=== PATIENT | male | born 1990 | race Caucasian/White ===

== ENCOUNTER 2023-01-23 14:07 | Inpatient (IN) | payer SELFPAY ==
[2023-01-23] VITALS (12 sets, daily range): BP systolic 124–152; BP diastolic 101–113; PULSE 95–144; RESP 12–25; TEMP 36.7–37; O2SAT 96–100; BMI 28.0
--- NOTE | ~2023-01-23 | CT_ITS ---
EXAMINATION: CT abdomen pelvis w con DATE: 01/23/2023 19:10 INDICATION: abdominal pain, vomiting, no BMs TECHNIQUE: Computed tomography (CT) of the abdomen and pelvis was performed with 100 mL Omnipaque-350 intravenous contrast. Automated exposure control and iterative reconstruction technique were employe d. The dose-length product was 547.13 mGy-cm. COMPARISON: None. FINDINGS: Lower thorax: Unremarkable Liver: Diffuse fatty infiltration. Biliary/Gallbladder: Gallbladder is normal. No bile duct dilation. Pancreas: Mild peripancreatic edema and pancreatic fluid, probably secondary to the duodenal process. Spleen: Normal. Adrenals:No mass. Kidneys: No mass, stone, or hydronephrosis. GI tract: Marked wall edema in the second portion of the duodenum. Wall breakdown along the posterior aspect of the second portion of the duodenum. Considerable inflammatory stranding and fluid surround ing the duodenal C-loop. No small or large bowel dilation. Normal appendix. Mesentery/Peritoneum: No mass or free air. Retroperitoneum: No mass. Pelvis: Pelvic organs are within normal limits. Soft Tissues: Soft tissues and body wall unremarkable. Bones: No acute osseous finding. IMPRESSION: CT findings suspicious for a perforated duodenal ulcer. Peripancreatic inflammatory change and fluid likely related to the perforated duodenal ulcer, particularly if pancreatic labs are normal. Reviewed, dictated and finalized at location K. IMPRESSION: CT findings suspicious for a perforated duodenal ulcer. Peripancreatic inflamma tory change and fluid likely related to the perforated duodenal ulcer, particul vera if pancreatic labs are normal.
--- NOTE | ~2023-01-23 | US_ITS ---
Limited Abdominal Sonogram: Real-time sonographic imaging of the right upper quadrant was performed. Clinical History: Pancreatitis Findings: The liver appears mildly echogenic, with no evidence of mass lesion or bile duct dilatatio n. Main portal vein demonstrates normal direction of flow. The gallbladder is well distended, and nyasia ears normal with no evidence of gallstone or wall thickening. The common bile duct measures 4 mm. Th e pancreas is largely obscured by bowel gas shadowing. Impression: Diffuse fatty infiltration of the liver. Reviewed, dictated and finalized at location M. Impression: Diffuse fatty infiltration of the liver.
[2023-01-23 14:56] LABS: Basophils Absolute Auto 0.1 K/mm3 (0.0-0.1); Basophils Percent Auto 0.3 % (0.2-1.2); Eosinophils Percent Auto 0.2 % (0-4.4); Hematocrit 49.3 % (42.0-52.0); Hemoglobin 17.9 g/dL (14.0-18.0); Immature Granulocyte Absolute 0.06 K/mm3 (0.00-0.031); Immature Granulocyte Percent A 0.4 % (0-0.5); Lymphocytes Absolute Auto 1.38 K/mm3 (0.9-3.2); Lymphocytes Percent Auto 9.4 % (18.3-44.2); Mean Corpuscular HGB Conc 36.3 g/dl (32-36); Mean Corpuscular Hemoglobin 33.5 pg (26-34); Mean Corpuscular Volume 92.1 fl (80-100); Mean Platelet Volume 9.6 fl (7.4-10.4); Monocytes Absolute Auto 0.6 K/mm3 (0.1-0.6); Monocytes Percent Auto 4.2 % (2.6-8.5); Neutrophils Absolute Auto 12.5 K/mm3 (1.3-6.7); Neutrophils Percent Auto 85.5 % (45.5-73.1); Platelet Count Result 220 k/mm3 (150-375); Red Blood Count 5.35 M/mm3 (4.6-6.20); Red Cell Distribution Width 13.5 % (11.5-14.5); White Blood Count 14.6 K/mm3 (4.5-10.0)
[2023-01-23 15:42] LABS: Bacteria Urine None Seen /hpf; Hyaline Casts Urine Present /lpf; Need Manual Microscopic Reviewed; Non Pathogenic Casts >20; Squamous Epithelial Cell Urine Many /hpf (Few); WBC Urine 0-5 /hpf; White Blood Cell Casts Urine Present /lpf
[2023-01-23 15:46] LABS: Appearance Urine Clear (Clear); Bilirubin Urine 3+ (Negative); Blood Urine Negative (Negative); Color Urine Orange (Yellow); Glucose Urine UA Negative (Negative); Ketones Urine 4+ mg/dL (Negative); Leukocyte Esterase Ur Negative LEU/UL (Negative); Nitrate Urine Positive (Negative); Protein Urine 3+ mg/dL (Negative); Specific Grav Ur >= 1.030 (1.001-1.035); pH Urine 5.5 (5.0-9.0)
[2023-01-23 15:48] LABS: Add Urine Microscopic? YES
[2023-01-23] MEDS: LACTATED RINGERS 1,000 ML 999 ML IV CONT ×3 (17:48→20:07)
--- NOTE | 2023-01-23 18:12 | ED.ABDPAIN ---
HPI - Abdominal Pain General Chief Complaint: Abdominal Pain Stated Complaint: abdominal cramps Time Seen by Provider: 01/23/23 17:27 History of Present Illness HPI narrative: Patient is a 33-year-old male with a history of GERD presenting with abdominal pain. Patient states that for the last day and a half he has had severe abdominal cramping that waxes and wanes in intensity. States he has had several episodes of emesis. States he has not been able to have a bowel movement since Monday. States this is very abnormal for him as he normally has 2-3 bowel movements a day. Denies prior abdominal surgeries. Denies fevers or chills, chest pain, shortness of breath, dysuria, hematuria, flank pain. Denies leg swelling. Related Data Home Medications Medication Instructions Recorded Confirmed omeprazole 20 mg tablet,delayed 20 mg PO DAILY 10/28/20 06/07/21 release Allergies Allergy/AdvReac Type Severity Reaction Status Date / Time hydroxyzine [From Vistaril] Allergy Intermediate Fever Verified 10/28/20 11:01 Review of Systems Review of Systems: All systems reviewed & are unremarkable except as noted in HPI and below PMFSH Past Medical History Medical History Abscessed tooth BMI 29.0-29.9,adult Diarrhea Edema Essential (primary) hypertension Gastro-esophageal reflux disease without esophagitis Tobacco use disorder, continuous Viral illness Surgical History Surgical History History of surgery on arm (~1997) left arm due to fracture Family History Family History Grandparent Heart disease Hypoglycemia Mother Kidney stones Father Hx of hernia repair Grandparent Diabetes mellitus Heart disease Kidney disease Social History Social History Smoking packs per day: 0.5 Smoking cigarettes per day: 10.0 Smoking status: Current every day smoker Tobacco type: cigarettes Alcohol intake: current Alcohol use details: whiskey 6 to 7 ounces daily Substance use: never Substance use type: does not use Exam Narrative: GENERAL: Well-appearing, well-nourished, and in no acute distress. HEAD: Normocephalic, atraumatic. EYES: PERRLA and EOMI. ENT: Nares clear, no rhinorrhea or epistaxis. Mucous membranes dry NECK: Supple. CHEST: Clear to auscultation. No respiratory distress. HEART: Regular rate and rhythm ABDOMEN: Soft, diffusely tender without guarding or rebound EXTREMITIES: Normal range of motion. No edema. SKIN: Warm, dry, no rash. NEURO: No focal deficits. Alert and oriented x3. PSYCH: Normal mood and affect. Course Vital Signs Vital signs: Vital Signs Temperature 98.0 F 01/23/23 14:34 Pulse Rate 113 H 01/23/23 14:34 Respiratory Rate 18 01/23/23 14:34 Blood Pressure 138/101 H 01/23/23 14:34 Pulse Oximetry 100 01/23/23 14:34 Oxygen Delivery Room Air 01/23/23 14:34 Temperature 98.6 F 01/23/23 17:24 Pulse Rate 113 H 01/23/23 18:45 Respiratory Rate 16 01/23/23 18:45 Blood Pressure 124/113 H 01/23/23 17:46 Pulse Oximetry 98 01/23/23 18:45 Oxygen Delivery Room Air 01/23/23 17:24 MDM - Abdominal Pain MDM Narrative Medical decision making narrative: Patient is a 33-year-old male presenting with abdominal pain and vomiting. Patient tachycardic in the 120s to 130s on arrival. Normotensive. Saturating well on room air. Exam remarkable for the above. Plan for CT abdomen pelvis, blood work. We will start fluids, Pepcid, Tylenol, Toradol. Lipase is 6500. Sodium is 130, there is a mild transaminitis, normal potassium and renal function. Lab Data 01/23/23 14:40 01/23/23 14:40 Labs: Lab Results 01/23/23 01/23/23 01/23/23 Range/Units 14:40 14:44 17:47 WBC 14.
[2023-01-23 18:35] LABS: Alanine Aminotransferase 230 U/L (6-50); Albumin Level 4.5 g/dL (3.5-5.1); Alkaline Phosphatase 121 U/L (38-126); Anion Gap 11 mmol/L (8-16); Aspartate Amino Transferase 207 U/L (17-59); Bilirubin,Total 2.1 mg/dL (0.2-1.3); Blood Urea Nitrogen 8 mg/dL (9-20); Calcium 9.3 mg/dL (8.4-10.2); Carbon Dioxide 27 mmol/L (22-30); Chloride 92 mmol/L (98-107); Estimated CRCL calculation 108 ml/min; Estimated Glomerular Filt Rate > 60; Glucose 133 mg/dL (65-110); Sodium 130 mmol/L (137-145)
[2023-01-23] MEDS: KETOROLAC 15 MG/ML VIAL (*BKC) IV PUSH (18:47)
[2023-01-23 18:48] LABS: Lipase 6503 U/L (23-300)
[2023-01-23] MEDS: FAMOTIDINE 20 MG/2 ML VIAL IV PUSH (18:50)
[2023-01-23 18:51] LABS: Lactic Acid Reflex 1.6 mmol/L (0.7-2.0)
--- NOTE | 2023-01-23 20:17 | PM.IMHP ---
H&P: HPI History of Present Illness Date/Time: 01/23/23 20:17 Chief Complaint: Abdominal pain Narrative: This is a 33-year-old male with past medical history significant for gastroesophageal reflux disease, hypertension, patient smokes 1 pack of cigarettes daily and drinks 1 pt of whiskey daily. Presents to the emergency room with diffuse abdominal pain crampy in nature 10/10 in intensity no nausea, no vomiting, no diarrhea, no hematemesis, no coffee-ground emesis, no melena, no bright red blood per rectum. Patient has been in his usual state of health up until this point he has not had a drink in the last 24 hours. Denies any tremors, any formication, or hallucinations, patient took ibuprofen and Tylenol to help ease the pain. Preliminary workup was significant for a lipase level of 6005 home, AST/ALT/alk phos stage bilirubin were 2.1/230/207/120 CT of abdomen and pelvis was reported as: FINDINGS: Lower thorax: Unremarkable Liver: Diffuse fatty infiltration.? Biliary/Gallbladder: Gallbladder is normal. No bile duct dilation. Pancreas: Mild peripancreatic edema and pancreatic fluid, probably secondary to the duodenal process. Spleen: Normal. Adrenals:No mass. Kidneys: No mass, stone, or hydronephrosis. GI tract: Marked wall edema in the second portion of the duodenum. Wall breakdown along the posterior aspect of the second portion of the duodenum. Considerable inflammatory stranding and fluid surrounding the duodenal C-loop. No small or large bowel dilation. Normal appendix. Mesentery/Peritoneum: No mass or free air. Retroperitoneum: No mass. Pelvis: Pelvic organs are within normal limits. Soft Tissues: Soft tissues and body wall unremarkable. Bones:? No acute osseous finding. IMPRESSION: CT findings suspicious for a perforated duodenal ulcer. Peripancreatic inflammatory change and fluid likely related to the perforated duodenal ulcer, particularly if pancreatic labs are normal. Review of Systems Review of Systems: Abdominal pain Constitutional: Constitutional: Denies chills, Denies fever(s), Denies malaise, Denies night sweats, Denies poor appetite and Denies weakness Eyes: Eyes: Denies change in vision ENT: Denies dysphagia, Denies vertigo, Denies dizziness and Denies odynophagia Cardiovascular: Cardiovascular: Denies chest pain, Denies leg edema, Denies lightheadedness and Denies palpitations Respiratory: Respiratory: Denies cough and Denies excessive phlegm production Gastrointestinal: Gastrointestinal: Reports abdominal pain, Denies melena, Denies bloating, Denies hematochezia, Denies coffee ground emesis, Reports GI cramping, Denies dyspepsia, Reports heartburn, Denies diarrhea, Denies nausea and Denies vomiting Genitourinary: Genitourinary: Reports no additional male genitourinary complaints and Reports as per HPI Musculoskeletal: Musculoskeletal: Denies back pain, Denies joint swelling and Denies muscle weakness Integumentary/Breasts: Skin/Breast: Denies rash Neurologic: Denies focal weakness and Denies Sensory deficit (Neuro) Psychiatric: Psychiatric: Reports no additional psychiatric complaints and Reports as per HPI Endocrine: Endocrine: Denies cold intolerance, Denies flushing, Denies heat intolerance, Denies polyphagia, Denies polydipsia and Denies palpitations Hematologic/Lymphatic: Hematologic/Lymphatic: Reports no additional hematologic/lymphatic complaints and Reports as per HPI Allergic/Immunologic: Allergic/Immunologic: Reports no additional allergic/immunologic complaints and Reports as per HPI PMFSH Past Medical History Medical History Abscessed tooth BMI 29.0-29.9,adult Diarrhea Edema Essential (primary) hypertension Gastro-esophageal reflux disease without esophagitis Tobacco use disorder, continuous Viral illness Surgical History Surgical History History of surgery on a
[2023-01-24] VITALS: BP 147/109; PULSE 124; RESP 18; TEMP 36.7; O2SAT 96
[2023-01-24] MEDS: DEXTROSE 5%/0.45% SOD CHL 1,000 ML 125 ML IV CONT ×3 (00:50→15:47)
[2023-01-24] MEDS: ONDANSETRON INJ 4 MG/2 ML VIAL IV PUSH (03:34)
[2023-01-24] MEDS: HYDROmorphone HCL INJ (*CRX) 1 MG/ML SYR IV PUSH (03:36)
[2023-01-24 06:00] VITALS: BP 132/98; PULSE 94; RESP 18; TEMP 36; O2SAT 96
[2023-01-24 08:12] LABS: Glucose Point of Care 128 mg/dl (65-105)
[2023-01-24] MEDS: PANTOPRAZOLE SODIUM IV 40 MG VIAL IV PUSH ×2 (08:17→20:48)
[2023-01-24] MEDS: THIAMINE HCL 200 MG/2 ML VIAL 100 MG IV PUSH (08:17)
[2023-01-24 08:34] LABS: Basophils Percent Auto 0.5 % (0.2-1.2); Eosinophils Absolute Auto 0.1 K/mm3 (0-0.3); Eosinophils Percent Auto 0.7 % (0-4.4); Hematocrit 46.7 % (42.0-52.0); Immature Granulocyte Absolute 0.03 K/mm3 (0.00-0.031); Immature Granulocyte Percent A 0.4 % (0-0.5); Immature Platelet Fraction Pct 5.1 % (0.9-11.2); Lymphocytes Percent Auto 15.5 % (18.3-44.2); Mean Corpuscular HGB Conc 34.3 g/dl (32-36); Mean Corpuscular Hemoglobin 33.4 pg (26-34); Mean Corpuscular Volume 97.5 fl (80-100); Mean Platelet Volume 9.2 fl (7.4-10.4); Monocytes Absolute Auto 0.5 K/mm3 (0.1-0.6); Monocytes Percent Auto 5.6 % (2.6-8.5); Neutrophils Absolute Auto 6.5 K/mm3 (1.3-6.7); Neutrophils Percent Auto 77.3 % (45.5-73.1); Platelet Count Result 164 k/mm3 (150-375); Red Blood Count 4.79 M/mm3 (4.6-6.20); Red Cell Distribution Width 13.8 % (11.5-14.5); White Blood Count 8.4 K/mm3 (4.5-10.0)
[2023-01-24 08:51] LABS: Alanine Aminotransferase 130 U/L (6-50); Albumin Level 3.4 g/dL (3.5-5.1); Alkaline Phosphatase 71 U/L (38-126); Anion Gap 6 mmol/L (8-16); Aspartate Amino Transferase 107 U/L (17-59); Bilirubin,Total 1.6 mg/dL (0.2-1.3); Blood Urea Nitrogen 5 mg/dL (9-20); Calcium 7.7 mg/dL (8.4-10.2); Carbon Dioxide 30 mmol/L (22-30); Chloride 96 mmol/L (98-107); Estimated CRCL calculation 140 ml/min; Estimated Glomerular Filt Rate > 60; Glucose 109 mg/dL (65-110); Lipase 903 U/L (23-300); Potassium 3.5 mmol/L (3.4-5.0); Sodium 132 mmol/L (137-145)
--- NOTE | 2023-01-24 09:31 | PM.CNGS ---
Assessment and Plan Assessment and plan (1) Acute pancreatitis: Code(s): K85.90 - Acute pancreatitis without necrosis or infection, unspecified Status: Acute Assessment and Plan: CT showed inflammation of the duodenum with possible wall breakdown and peripancreatic inflammation and fluid as well. There is no free intraperitoneal air noted on CT. There is correlation of an elevated lipase of 6,000 on admission, suggesting acute pancreatitis. This could be caused by his alcohol use. No gallstones on US. It is difficult to tell if this is all related to pancreatitis with adjacent inflammation of the duodenum or if he does additionally have a duodenal ulcer. He does not have any diffuse peritoneal signs on exam and is already clinically improving with conservative management. Would recommend to continue medical management of the pancreatitis with IV fluids, bowel rest, and analgesics as needed for pain. Agree with GI consultation and continuing IV Protonix for now. Will hold off on any antibiotics at this point with low suspicion of bowel perforation, but if his WBC count goes up or he starts showing signs of infection, then we would need to add IV antibiotics. We would recommend to continue with nonoperative management at this time as he is responding well, but discussed with the patient that if he begins to have peritoneal signs or is getting worse with conservative measures and concern of perforation, then we may need to consider surgery. (2) Duodenitis: Code(s): K29.80 - Duodenitis without bleeding Status: Acute Assessment and Plan: Duodenitis noted on CT with suggestion of possible duodenal ulcer. No free air on CT. GI consulted. Continue PPI. See plan above. (3) Elevated LFTs: Code(s): R79.89 - Other specified abnormal findings of blood chemistry Status: Acute Assessment and Plan: LFTs trending down this morning. GI consulted. US suggests fatty infiltration of the liver. No gallstones or bile duct dilatation noted on imaging. Could be related to the inflammation or liver disease. (4) Alcohol dependence: Code(s): F10.20 - Alcohol dependence, uncomplicated Status: Acute Assessment and Plan: Encouraged cessation and patient agrees he plans to stop drinking after discharge. Likely cause of his pancreatitis. (5) Tobacco dependence: Code(s): F17.200 - Nicotine dependence, unspecified, uncomplicated Status: Acute Assessment and Plan: Encouraged cessation. (6) Essential (primary) hypertension: Code(s): I10 - Essential (primary) hypertension Status: Acute Assessment and Plan: Has been noncompliant with his antihypertensive medication. Management per Hospitalist. (7) Gastro-esophageal reflux disease without esophagitis: Code(s): K21.9 - Gastro-esophageal reflux disease without esophagitis Status: Acute Plan I have discussed the patient's case and plan of care with Dr. Mckenzie. History of Present Illness Consult details Consult date: 01/24/23 Reason for consult: other (Possible perforated duodenal ulcer, Pancreatitis) Requesting physician: Nahomi Bowers MD Narrative: This is a 33-year-old man who presented to the ER yesterday with complaints of abdominal pain and vomiting. He has a history of hypertension and GERD, but reportedly has not taken his medications in the past 6 months due to noncompliance of forgetting his medication. He reports a sudden onset of generalized abdominal pain when waking up in the morning 2 days ago. The pain is sharp and severe. It goes across his entire abdomen. The pain was constant with no alleviating factors. He tried taking Ibuprofen without any relief. He developed nausea with multiple episodes of nonbloody nonbilious vomiting. Due to his persistent pain, he presented to the ER for evaluation. In the ER, he was tachycardic with a heart rate from 120-140's. He was afebrile. Labs showed
[2023-01-24 09:35] VITALS: O2SAT 96
[2023-01-24] MEDS: HYDROmorphone HCL INJ (*CRX) 1 MG/ML SYR 0.5 MG IV PUSH ×3 (11:05→20:46)
[2023-01-24 11:54] LABS: Glucose Point of Care 128 mg/dl (65-105)
--- NOTE | 2023-01-24 12:22 | P.PNIM_ITS ---
Progress Note: A&P Assessment and Plan (1) Acute pancreatitis: Code(s): K85.90 - Acute pancreatitis without necrosis or infection, unspecified Status: Acute Assessment and Plan: patient presented with severe diffuse abdominal pain /cramping * CT of the abdomen/pelvis showed peripancreatic inflammatory changes and fluid, possibly related to perforated duodenal ulcer, however appears clinically consistent with pancreatitis * lipase elevated at 6300 * continue with NPO diet * right upper quadrant ultrasound with no evidence of gallstones or wall thickening, normal common bile duct, pancreas obscured by bowel gas shadow * patient does endorse heavy alcohol use, 1 pint of liquor per day which is the likely etiology for acute pancreatitis * continue with IV fluid rehydration * appreciate gastroenterology and general surgery consult * lipase has improved to 900 today. Continue to trend * analgesics and antiemetics available as needed (2) Duodenitis: Code(s): K29.80 - Duodenitis without bleeding Status: Acute Assessment and Plan: as and above, patient presented with severe abdominal pain * CT findings revealed marked well edema and 2nd portion of duodenum with wall breakdown along the posterior aspect 2nd portion of duodenum and considerable inflammatory stranding and fluid, concerning for perforated duodenal ulcer * appreciate general surgery recommendations * per General surgery, no diffuse peritoneal signs and no indication for surgic al intervention at this time * continue with conservative management * continue IV Protonix * await Gastroenterology recommendations (3) Elevated LFTs: Code(s): R79.89 - Other specified abnormal findings of blood chemistry Status: Acute Assessment and Plan: LFTs elevated on presentation was total bilirubin 2.1, AST 207, ALT 230 * LFTs decreased by half today * may be related to alcohol use versus fatty liver which was seen on ultrasound * will evaluate hepatitis panel for full evaluation * trend LFTs (4) Gastro-esophageal reflux disease without esophagitis: Code(s): K21.9 - Gastro-esophageal reflux disease without esophagitis Status: Acute Assessment and Plan: continue with Protonix (5) Alcohol dependence: Code(s): F10.20 - Alcohol dependence, uncomplicated Status: Acute Assessment and Plan: patient drinks 1 pint of whiskey per day * patient denies any history of alcohol withdrawal symptoms * continue with CIWA protocol. CIWA scores ranging 0-2 today * Ativan as needed for CIWA >8 * consider addition of Librium taper if patient develops more severe symptoms * continue thiamine and folic acid * consult to care coordination to provide alcohol cessation resources (6) Tobacco dependence: Code(s): F17.200 - Nicotine dependence, unspecified, uncomplicated Status: Acute Assessment and Plan: patient smokes 1 pack per day * patient instructed that he cannot vape in the facility * declined nicotine patch Subjective Date/time seen: 01/24/23 12:22 Interval history: date of service: 3142 patient is a 33-year-old male with a history of hypertension, tobacco use, daily alcohol use, and GERD who is seen in follow-up for pancreatitis and possible duodenal ulcer perforation. the patient reports that he is feeling improved today. He does endorse abdominal cramping they states is improved from presentation, currently rates at about 2.5-3/10. His pain is worse with deep
--- NOTE | 2023-01-24 12:22 | PM.IMPN ---
Progress Note: A&P Assessment and Plan (1) Acute pancreatitis: Code(s): K85.90 - Acute pancreatitis without necrosis or infection, unspecified Status: Acute Assessment and Plan: patient presented with severe diffuse abdominal pain /cramping CT of the abdomen/pelvis showed peripancreatic inflammatory changes and fluid, possibly related to perforated duodenal ulcer, however appears clinically consistent with pancreatitis lipase elevated at 6300 continue with NPO diet right upper quadrant ultrasound with no evidence of gallstones or wall thickening, normal common bile duct, pancreas obscured by bowel gas shadow patient does endorse heavy alcohol use, 1 pint of liquor per day which is the likely etiology for acute pancreatitis continue with IV fluid rehydration appreciate gastroenterology and general surgery consult lipase has improved to 900 today. Continue to trend analgesics and antiemetics available as needed (2) Duodenitis: Code(s): K29.80 - Duodenitis without bleeding Status: Acute Assessment and Plan: as and above, patient presented with severe abdominal pain CT findings revealed marked well edema and 2nd portion of duodenum with wall breakdown along the posterior aspect 2nd portion of duodenum and considerable inflammatory stranding and fluid, concerning for perforated duodenal ulcer appreciate general surgery recommendations per General surgery, no diffuse peritoneal signs and no indication for surgical intervention at this time continue with conservative management continue IV Protonix await Gastroenterology recommendations (3) Elevated LFTs: Code(s): R79.89 - Other specified abnormal findings of blood chemistry Status: Acute Assessment and Plan: LFTs elevated on presentation was total bilirubin 2.1, AST 207, ALT 230 LFTs decreased by half today may be related to alcohol use versus fatty liver which was seen on ultrasound will evaluate hepatitis panel for full evaluation trend LFTs (4) Gastro-esophageal reflux disease without esophagitis: Code(s): K21.9 - Gastro-esophageal reflux disease without esophagitis Status: Acute Assessment and Plan: continue with Protonix (5) Alcohol dependence: Code(s): F10.20 - Alcohol dependence, uncomplicated Status: Acute Assessment and Plan: patient drinks 1 pint of whiskey per day patient denies any history of alcohol withdrawal symptoms continue with CIWA protocol. CIWA scores ranging 0-2 today Ativan as needed for CIWA >8 consider addition of Librium taper if patient develops more severe symptoms continue thiamine and folic acid consult to care coordination to provide alcohol cessation resources (6) Tobacco dependence: Code(s): F17.200 - Nicotine dependence, unspecified, uncomplicated Status: Acute Assessment and Plan: patient smokes 1 pack per day patient instructed that he cannot vape in the facility declined nicotine patch Subjective Date/time seen: 01/24/23 12:22 Interval history: date of service: 3142 patient is a 33-year-old male with a history of hypertension, tobacco use, daily alcohol use, and GERD who is seen in follow-up for pancreatitis and possible duodenal ulcer perforation. the patient reports that he is feeling improved today. He does endorse abdominal cramping they states is improved from presentation, currently rates at about 2.5-3/10. His pain is worse with deep breath or with belching. He does feel bloated and gassy. He had nausea yesterday but today denies any episodes of nausea or vomiting. he has had improvement with analgesics. Reports passing flatus. Last bowel movement was Monday evening. He denies any blood in his stools. Denies hematemesis. He denies any urinary symptoms. Denies any alcohol withdrawal symptoms including agitation, anxiety, tremors, restles
[2023-01-24 14:00] VITALS: BP 127/87; PULSE 105; RESP 20; TEMP 37; O2SAT 96
--- NOTE | 2023-01-24 17:02 | WPDGICN ---
Assessment and Plan Assessment and plan (1) Acute pancreatitis: Code(s): K85.90 - Acute pancreatitis without necrosis or infection, unspecified Status: Acute Assessment and Plan: this is probably related to alcohol abuse currently npo, evaluated by surgery, abdominal exam without peritonitis sign and CT scan findings reviewed with radiologist monitor closely, if pain better tomorrow then can start liquid diet (2) Alcohol dependence: Code(s): F10.20 - Alcohol dependence, uncomplicated Status: Acute Assessment and Plan: thiamine, mvi monitor for withdrawal (3) Elevated LFTs: Code(s): R79.89 - Other specified abnormal findings of blood chemistry Status: Acute Assessment and Plan: probably from alcohol and acute pancreatitis (4) Fatty liver due to alcoholism: Code(s): K70.0 - Alcoholic fatty liver Status: Acute (5) Duodenitis: Code(s): K29.80 - Duodenitis without bleeding Status: Acute Assessment and Plan: at some point will need egd (never had one and has been using ppi otc without seeing a doctor) iv protonix (6) Abdominal pain: Code(s): R10.9 - Unspecified abdominal pain Status: Acute (7) Gastro-esophageal reflux disease without esophagitis: Code(s): K21.9 - Gastro-esophageal reflux disease without esophagitis Status: Acute GI Consult Note Consult date/time: 01/24/23 17:02 Reason for consult: pancreatitis, duodenitis, alcohol abuse HPI: Abraham Feliciano is a 33 year old male who is an alcoholic about 1 pint per day for 2 years, gerd using omeprazole OTC but never had EGD. He came to ER?because new onset of severe diffuse abdominal pain and vomiting, pain was sharp across his entire abdomen. He tried taking Ibuprofen without any relief. In the ER, he was tachycardic with a heart rate from 120-140's. Labs showed a WBC count 14,600, lactic acid 1.6, total bilirubin 2.1, AST 207, ALT 230, alk phos normal, lipase 6503. CT scan abdomen/pelvis showed wall edema of the duodenum with possible wall breakdown along the posterior aspect of the second portion of the duodenum with surrounding inflammatory stranding and fluid around the duodenal C-loop, additionally with mild peripancreatic edema and pancreatic fluid. Suggested possible perforated duodenal ulcer but after reviewed with surgery team no obvious finding of perforation. Pain is better. Review of Systems Review of Systems: All systems reviewed & are unremarkable except as noted in HPI and below Constitutional: Constitutional: Reports no additional constitutional complaints, Denies chills, Denies fatigue and Denies fever(s) Eyes: Eyes: Reports no additional eye complaints ENT: Reports system reviewed and no additional complaints, except as documented and Denies dizziness Cardiovascular: Cardiovascular: Reports no additional cardiovascular complaints, Denies chest pain and Denies leg edema Respiratory: Respiratory: Reports no additional respiratory complaints, Denies cough and Denies dyspnea Gastrointestinal: Gastrointestinal: Reports as per HPI, Reports no additional gastrointestinal complaints, Reports abdominal pain, Reports bloating, Denies coffee ground emesis, Denies constipation, Denies diarrhea, Reports nausea, Reports vomiting and Denies hematemesis Genitourinary: Genitourinary: Reports no additional male genitourinary complaints and Denies dysuria Musculoskeletal: Musculoskeletal: Reports no additional musculoskeletal complaints, Denies abnormal gait and Denies joint swelling Integumentary/Breasts: Skin/Breast: Reports system reviewed and no additional complaints, except as docu and Denies jaundice Neurologic: Reports system reviewed and no additional complaints, except as documented, Denies headache(s), Denies focal weakness, Denies numbness and Denies tingling PMFSH Past Medical History Medical History (Updated 01/24/23 @ 15:54 by Kishor Mistry
[2023-01-24 19:13] LABS: Glucose Point of Care 116 mg/dl (65-105)
[2023-01-24 21:19] VITALS: BP 126/83; PULSE 109; RESP 18; TEMP 36.9; O2SAT 95
[2023-01-25] MEDS: DEXTROSE 5%/0.45% SOD CHL 1,000 ML 125 ML IV CONT ×2 (00:17→08:12)
[2023-01-25] MEDS: HYDROmorphone HCL INJ (*CRX) 1 MG/ML SYR 0.5 MG IV PUSH ×6 (00:32→22:40)
[2023-01-25 01:23] LABS: Glucose Point of Care 113 mg/dl (65-105)
[2023-01-25 06:00] VITALS: BP 128/92; PULSE 94; RESP 18; TEMP 37.1; O2SAT 94
[2023-01-25 06:44] LABS: Basophils Percent Auto 0.5 % (0.2-1.2); Eosinophils Absolute Auto 0.2 K/mm3 (0-0.3); Eosinophils Percent Auto 2.5 % (0-4.4); Hematocrit 41.8 % (42.0-52.0); Immature Granulocyte Absolute 0.04 K/mm3 (0.00-0.031); Immature Granulocyte Percent A 0.5 % (0-0.5); Immature Platelet Fraction Pct 5.6 % (0.9-11.2); Lymphocytes Absolute Auto 1.22 K/mm3 (0.9-3.2); Lymphocytes Percent Auto 15.7 % (18.3-44.2); Mean Corpuscular HGB Conc 33.5 g/dl (32-36); Mean Corpuscular Volume 98.6 fl (80-100); Mean Platelet Volume 9.5 fl (7.4-10.4); Monocytes Absolute Auto 0.7 K/mm3 (0.1-0.6); Monocytes Percent Auto 9.4 % (2.6-8.5); Neutrophils Absolute Auto 5.5 K/mm3 (1.3-6.7); Neutrophils Percent Auto 71.4 % (45.5-73.1); Platelet Count Result 141 k/mm3 (150-375); Red Blood Count 4.24 M/mm3 (4.6-6.20); Red Cell Distribution Width 13.9 % (11.5-14.5); White Blood Count 7.8 K/mm3 (4.5-10.0)
[2023-01-25 07:04] LABS: Alanine Aminotransferase 94 U/L (6-50); Albumin Level 3.3 g/dL (3.5-5.1); Alkaline Phosphatase 73 U/L (38-126); Anion Gap 3 mmol/L (8-16); Aspartate Amino Transferase 73 U/L (17-59); Blood Urea Nitrogen 4 mg/dL (9-20); Carbon Dioxide 33 mmol/L (22-30); Chloride 91 mmol/L (98-107); Estimated CRCL calculation 108 ml/min; Estimated Glomerular Filt Rate > 60; Glucose 125 mg/dL (65-110); Potassium 3.9 mmol/L (3.4-5.0); Sodium 127 mmol/L (137-145)
[2023-01-25 08:03] LABS: Glucose Point of Care 138 mg/dl (65-105)
[2023-01-25] MEDS: PANTOPRAZOLE SODIUM IV 40 MG VIAL IV PUSH ×2 (08:13→19:58)
[2023-01-25] MEDS: THIAMINE HCL 200 MG/2 ML VIAL 100 MG IV PUSH (08:13)
[2023-01-25] MEDS: FOLIC ACID 1 MG TABLET PO (08:14)
[2023-01-25 08:42] LABS: Lipase 375 U/L (23-300)
[2023-01-25] MEDS: SODIUM CHLORIDE 0.9% IV 1,000 ML 100 ML IV CONT ×2 (08:57→17:34)
[2023-01-25] MEDS: ONDANSETRON INJ 4 MG/2 ML VIAL IV PUSH (09:34)
[2023-01-25 12:18] LABS: Glucose Point of Care 110 mg/dl (65-105)
[2023-01-25 12:29] LABS: Sodium 127 mmol/L (137-145)
--- NOTE | 2023-01-25 13:21 | PM.PNGS ---
Progress Note: A&P Assessment and Plan (1) Acute pancreatitis: Code(s): K85.90 - Acute pancreatitis without necrosis or infection, unspecified Status: Acute Assessment and Plan: Clinically improving with current treatment, lipase trending down to 375 today. Abdominal pain much improved, abd exam benign. We feel this is all related to the acute pancreatitis. No evidence of bowel perforation or peritoneal signs on exam. Continue with medical management of the pancreatitis, GI following, will start clear liquids and okay to advance diet as tolerated. No indication for any surgical intervention. We will sign off at this point. Call with any surgical questions or concerns. No follow-up needed. (2) Duodenitis: Code(s): K29.80 - Duodenitis without bleeding Status: Acute Assessment and Plan: Management per GI. Continue PPI, plan for possible endoscopy evaluation eventually. (3) Elevated LFTs: Code(s): R79.89 - Other specified abnormal findings of blood chemistry Status: Acute (4) Alcohol dependence: Code(s): F10.20 - Alcohol dependence, uncomplicated Status: Acute Assessment and Plan: Recommended cessation and patient agreeable. Plan I have discussed the patient's case and plan of care with Dr. Mckenzie. Subjective Subjective Date/Time Seen: 01/25/23 13:21 Patient reports: no new complaints, feels better, pain is less, flatus and afebrile Interval history: Patient feeling much better today. Reports abdominal pain has significantly improved. He now only reports very mild right lower quadrant abdominal pain. He denies any nausea or vomiting. No other complaints at this time. He is thirsty and eager to try liquids. Review of Systems Review of Systems: All systems reviewed & are unremarkable except as noted in HPI and below Exam Const: General: comfortable and no acute distress Orientation/consciousness: patient oriented x3 GI: Inspection: non-distended GI Palp: Yes Soft to palpation, Yes Tenderness to palpation present (GI) (Very mild TTP across upper abdomen), No Guarding due to palpation present (GI), No Rebound tenderness present and Yes Other GI palpation findings present (No peritoneal signs) Percussion: Yes normal to percussion Auscultation: normal bowel sounds Objective Data Vital Signs Vital Signs: Vital Signs - 24 hr 01/24/23 14:00 01/24/23 21:19 01/25/23 06:00 Temperature 98.6 F 98.5 F 98.8 F Pulse Rate 105 H 109 H 94 Respiratory Rate 20 18 18 Blood Pressure 127/87 126/83 128/92 H Pulse Oximetry 96 95 94 Intake/Output Intake/Output: Intake & Output 01/22/23 01/23/23 01/24/23 01/25/23 23:59 23:59 23:59 23:59 Intake Total 3200 3000 2550 Output Total 350 Balance 3200 2650 2550 Meds/Results Medications: Active Medications Generic Name Dose Route Start Last Admin Trade Name Freq PRN Reason Stop Dose Admin Folic Acid 1 mg 01/25/23 09:00 01/25/23 08:14 Folic Acid 1 Mg Tablet PO 1 mg DAILY NELSON Administration Hydromorphone HCl 1 mg 01/24/23 03:14 01/24/23 03:36 Hydromorphone Hcl Inj (*Crx) 1 Mg/Ml Syr IV PUSH 1 mg Q3H PRN Administration Pain Rated 7-10 Hydromorphone HCl 0.5 mg 01/24/23 09:54 01/25/23 12:28 Hydromorphone Hcl Inj (*Crx) 1 Mg/Ml Syr IV PUSH 0.5 mg Q3H PRN Administration Pain Rated 4-6 Sodium Chloride 1,000 mls @ 100 mls/hr 01/25/23 08:35 01/25/23 08:57 Normal Saline Iv IV CONT 100 mls/hr .Q10H NELSON Administration Lorazepam 0.5 mg 01/24/23 08:05 Lorazepam Inj (*Crx) 2 Mg/Ml Vial IV PUSH Q6H PRN CIWA >8 Ondansetron HCl 4 mg 01/24/23 00:19 01/25/23 09:34 Ondansetron Inj 4 Mg/2 Ml Vial IV PUSH 4 mg Q6H PRN Administration Nausea And Vomiting Pantoprazole Sodium 40 mg 01/24/23 09:00 01/25/23 08:13 Pantoprazole Sodium Iv 40 Mg Vial IV PUSH 40 mg Q12HR NELSON Administration Thiamine HCl 100 mg 01/24/23
[2023-01-25 14:00] VITALS: BP 128/91; PULSE 96; RESP 18; TEMP 36.4; O2SAT 97
--- NOTE | 2023-01-25 15:52 | P.PNIM_ITS ---
Progress Note: A&P Assessment and Plan (1) Acute pancreatitis: Code(s): K85.90 - Acute pancreatitis without necrosis or infection, unspecified Status: Acute Assessment and Plan: patient presented with severe diffuse abdominal pain /cramping * CT of the abdomen/pelvis showed peripancreatic inflammatory changes and fluid, possibly related to perforated duodenal ulcer, however appears clinically consistent with pancreatitis * lipase elevated at 6300 * right upper quadrant ultrasound with no evidence of gallstones or wall thickening, normal common bile duct, pancreas obscured by bowel gas shadow * patient does endorse heavy alcohol use, 1 pint of liquor per day which is the likely etiology for acute pancreatitis * continue with IV fluid rehydration * advanced to clear liquid diet. Continue to advance as tolerated * appreciate gastroenterology and general surgery consult * lipase has improved to 375 today. Continue to trend * analgesics and antiemetics available as needed (2) Duodenitis: Code(s): K29.80 - Duodenitis without bleeding Status: Acute Assessment and Plan: as above, patient presented with severe abdominal pain * CT findings revealed marked well edema and 2nd portion of duodenum with wall breakdown along the posterior aspect 2nd portion of duodenum and considerable inflammatory stranding and fluid, concerning for perforated duodenal ulcer * appreciate general surgery recommendations * per General surgery, no diffuse peritoneal signs and no indication for surgical intervention at this time * per GI, patient will need EGD as an outpatient * continue with conservative management * continue IV Protonix (3) Elevated LFTs: Code(s): R79.89 - Other specified abnormal findings of blood chemistry Status: Acute Assessment and Plan: LFTs elevated on presentation with total bilirubin 2.1, AST 207, ALT 230 * LFTs with continued improvement today * may be related to alcohol use versus fatty liver which was seen on ultrasound * will evaluate hepatitis panel for full evaluation * trend LFTs (4) Gastro-esophageal reflux disease without esophagitis: Code(s): K21.9 - Gastro-esophageal reflux disease without esophagitis Status: Acute Assessment and Plan: continue with Protonix (5) Alcohol dependence: Code(s): F10.20 - Alcohol dependence, uncomplicated Status: Acute Assessment and Plan: patient drinks 1 pint of whiskey per day * patient denies any history of alcohol withdrawal symptoms * continue with CIWA protocol. CIWA scores ranging 0-1 today * Ativan as needed for CIWA >8 * consider addition of Librium taper if patient develops more severe symptoms * continue thiamine and folic acid * consult to care coordination to provide alcohol cessation resources (6) Tobacco dependence: Code(s): F17.200 - Nicotine dependence, unspecified, uncomplicated Status: Acute Assessment and Plan: patient smokes 1 pack per day * patient instructed that he cannot vape in the facility * declined nicotine patch (7) Hyponatremia: Code(s): E87.1 - Hypo-osmolality and hyponatremia Status: Acute Assessment and Plan: sodium low at 127 today * likely due to hypotonic fluids. Patient was on D5 1/2NS * transitioned to normal saline at 100 mL/hour * trend sodium. Repeat this afternoon to ensure improvement at appropriate rate Subjective Date/time seen: 01/25/23 15:52 Interv
--- NOTE | 2023-01-25 15:52 | PM.IMPN ---
Progress Note: A&P Assessment and Plan (1) Acute pancreatitis: Code(s): K85.90 - Acute pancreatitis without necrosis or infection, unspecified Status: Acute Assessment and Plan: patient presented with severe diffuse abdominal pain /cramping CT of the abdomen/pelvis showed peripancreatic inflammatory changes and fluid, possibly related to perforated duodenal ulcer, however appears clinically consistent with pancreatitis lipase elevated at 6300 right upper quadrant ultrasound with no evidence of gallstones or wall thickening, normal common bile duct, pancreas obscured by bowel gas shadow patient does endorse heavy alcohol use, 1 pint of liquor per day which is the likely etiology for acute pancreatitis continue with IV fluid rehydration advanced to clear liquid diet. Continue to advance as tolerated appreciate gastroenterology and general surgery consult lipase has improved to 375 today. Continue to trend analgesics and antiemetics available as needed (2) Duodenitis: Code(s): K29.80 - Duodenitis without bleeding Status: Acute Assessment and Plan: as above, patient presented with severe abdominal pain CT findings revealed marked well edema and 2nd portion of duodenum with wall breakdown along the posterior aspect 2nd portion of duodenum and considerable inflammatory stranding and fluid, concerning for perforated duodenal ulcer appreciate general surgery recommendations per General surgery, no diffuse peritoneal signs and no indication for surgical intervention at this time per GI, patient will need EGD as an outpatient continue with conservative management continue IV Protonix (3) Elevated LFTs: Code(s): R79.89 - Other specified abnormal findings of blood chemistry Status: Acute Assessment and Plan: LFTs elevated on presentation with total bilirubin 2.1, AST 207, ALT 230 LFTs with continued improvement today may be related to alcohol use versus fatty liver which was seen on ultrasound will evaluate hepatitis panel for full evaluation trend LFTs (4) Gastro-esophageal reflux disease without esophagitis: Code(s): K21.9 - Gastro-esophageal reflux disease without esophagitis Status: Acute Assessment and Plan: continue with Protonix (5) Alcohol dependence: Code(s): F10.20 - Alcohol dependence, uncomplicated Status: Acute Assessment and Plan: patient drinks 1 pint of whiskey per day patient denies any history of alcohol withdrawal symptoms continue with CIWA protocol. CIWA scores ranging 0-1 today Ativan as needed for CIWA >8 consider addition of Librium taper if patient develops more severe symptoms continue thiamine and folic acid consult to care coordination to provide alcohol cessation resources (6) Tobacco dependence: Code(s): F17.200 - Nicotine dependence, unspecified, uncomplicated Status: Acute Assessment and Plan: patient smokes 1 pack per day patient instructed that he cannot vape in the facility declined nicotine patch (7) Hyponatremia: Code(s): E87.1 - Hypo-osmolality and hyponatremia Status: Acute Assessment and Plan: sodium low at 127 today likely due to hypotonic fluids. Patient was on D5 1/2NS transitioned to normal saline at 100 mL/hour trend sodium. Repeat this afternoon to ensure improvement at appropriate rate Subjective Date/time seen: 01/25/23 15:52 Interval history: date of service: 01/25/2023 patient is a 33-year-old male with a history of hypertension, tobacco use, daily alcohol use, and GERD who is seen in follow-up for pancreatitis and possible duodenal ulcer perforation. he feels improved today. He does endorse abdominal soreness and tenderness that he states is less severe, currently rates 2.5/10. This morning he took some pain medication and felt nauseous after this. No other
--- NOTE | 2023-01-25 17:15 | WPDGIPROGNO ---
Progress Note: A&P Assessment and Plan (1) Acute pancreatitis: Code(s): K85.90 - Acute pancreatitis without necrosis or infection, unspecified Status: Acute Assessment and Plan: this is improving, ok to advance diet surgery signed off ct scan consistent with pancreatitis and duodenitis probably will benefit with EGD but as outpatient (2) Fatty liver due to alcoholism: Code(s): K70.0 - Alcoholic fatty liver Status: Acute Assessment and Plan: he needs to quit drinking, he already had elevated liver enzymes thiamine, supportive care (3) Elevated LFTs: Code(s): R79.89 - Other specified abnormal findings of blood chemistry Status: Acute (4) Duodenitis: Code(s): K29.80 - Duodenitis without bleeding Status: Acute Assessment and Plan: ppi daily egd as outpatient probably from alcohol and pancreatitis (5) Abdominal pain: Code(s): R10.9 - Unspecified abdominal pain Status: Acute Assessment and Plan: much better (6) Hyponatremia: Code(s): E87.1 - Hypo-osmolality and hyponatremia Status: Acute Assessment and Plan: monitor Subjective Date/time seen: 01/25/23 17:15 Interval history: doing much better with less pain and no more nausea, tolerated liquid diet Review of Systems Review of Systems: All systems reviewed & are unremarkable except as noted in HPI and below Exam Const: General: comfortable and no acute distress Orientation/consciousness: patient oriented x3 HENMT: Face/Nose/Sinus: Normal nares present Eyes: General: appearance normal, both eyes and all related structures Neck: Neck: supple Resp: Effort & Inspection: normal respiratory effort Cardio: Rate: regular rate GI: Inspection: non-distended GI Palp: Yes Soft to palpation, Yes Tenderness to palpation present (GI) (Very mild TTP across upper abdomen), No Guarding due to palpation present (GI), No Rebound tenderness present and Yes Other GI palpation findings present (No peritoneal signs) Percussion: Yes normal to percussion Auscultation: normal bowel sounds Skin: General skin exam: normal color Neuro: Speech: normal speech Motor exam (neuro): 5/5 motor strength present throughout Extrem: General: normal to inspection Psych: Mental Status: mental status grossly normal Objective Data Vital Signs Vital Signs: Vital Signs - 24 hr 01/24/23 21:19 01/25/23 06:00 Temperature 98.5 F 98.8 F Pulse Rate 109 H 94 Respiratory Rate 18 18 Blood Pressure 126/83 128/92 H Pulse Oximetry 95 94 Intake/Output Intake/Output: Intake & Output 01/22/23 01/23/23 01/24/23 01/25/23 23:59 23:59 23:59 23:59 Intake Total 3200 3000 2550 Output Total 350 500 Balance 3200 2650 2050 Meds/Results Medications: Active Medications Generic Name Dose Route Start Last Admin Trade Name Freq PRN Reason Stop Dose Admin Folic Acid 1 mg 01/25/23 09:00 01/25/23 08:14 Folic Acid 1 Mg Tablet PO 1 mg DAILY NELSON Administration Hydromorphone HCl 1 mg 01/24/23 03:14 01/24/23 03:36 Hydromorphone Hcl Inj (*Crx) 1 Mg/Ml Syr IV PUSH 1 mg Q3H PRN Administration Pain Rated 7-10 Hydromorphone HCl 0.5 mg 01/24/23 09:54 01/25/23 12:28 Hydromorphone Hcl Inj (*Crx) 1 Mg/Ml Syr IV PUSH 0.5 mg Q3H PRN Administration Pain Rated 4-6 Sodium Chloride 1,000 mls @ 100 mls/hr 01/25/23 08:35 01/25/23 08:57 Normal Saline Iv IV CONT 100 mls/hr .Q10H NELSON Administration Lorazepam 0.5 mg 01/24/23 08:05 Lorazepam Inj (*Crx) 2 Mg/Ml Vial IV PUSH Q6H PRN CIWA >8 Ondansetron HCl 4 mg 01/24/23 00:19 01/25/23 09:34 Ondansetron Inj 4 Mg/2 Ml Vial IV PUSH 4 mg Q6H PRN Administration Nausea And Vomiting Pantoprazole Sodium 40 mg 01/24/23 09:00 01/25/23 08:13 Pantoprazole Sodium Iv 40 Mg Vial IV PUSH 40 mg Q12HR NELSON Administration Thiamine HCl 100 mg 01/24/23 09:00 01/25/23 08:
[2023-01-25 17:54] LABS: Sodium 130 mmol/L (137-145); Triglycerides 373 mg/dL (<150)
[2023-01-25 19:15] LABS: Hepatitis B Surface Antigen Negative (Negative)
[2023-01-25 19:20] LABS: HAV RESULT Negative (Negative); Hepatitis B Core IgM Result Negative (Negative)
[2023-01-25 19:32] LABS: Hepatitis C Virus Antibody Negative (Negative)
[2023-01-25 19:52] VITALS: BP 150/99; PULSE 107; RESP 16; TEMP 37; O2SAT 99
[2023-01-26] MEDS: HYDROmorphone HCL INJ (*CRX) 1 MG/ML SYR 0.5 MG IV PUSH (02:08)
[2023-01-26] MEDS: SODIUM CHLORIDE 0.9% IV 1,000 ML 100 ML IV CONT (03:18)
[2023-01-26 06:00] VITALS: BP 126/80; PULSE 95; RESP 18; TEMP 36.2; O2SAT 96
[2023-01-26 07:13] LABS: Hematocrit 38.1 % (42.0-52.0); Hemoglobin 12.6 g/dL (14.0-18.0); Mean Corpuscular HGB Conc 33.1 g/dl (32-36); Mean Corpuscular Hemoglobin 33.1 pg (26-34); Mean Platelet Volume 9.8 fl (7.4-10.4); Platelet Count Result 168 k/mm3 (150-375); Red Blood Count 3.81 M/mm3 (4.6-6.20); Red Cell Distribution Width 13.8 % (11.5-14.5)
[2023-01-26 07:24] LABS: Alanine Aminotransferase 98 U/L (6-50); Albumin Level 3.1 g/dL (3.5-5.1); Alkaline Phosphatase 80 U/L (38-126); Anion Gap 6 mmol/L (8-16); Aspartate Amino Transferase 92 U/L (17-59); Bilirubin,Total 1.4 mg/dL (0.2-1.3); Blood Urea Nitrogen 4 mg/dL (9-20); Calcium 8.2 mg/dL (8.4-10.2); Carbon Dioxide 31 mmol/L (22-30); Chloride 98 mmol/L (98-107); Estimated CRCL calculation 140 ml/min; Estimated Glomerular Filt Rate > 60; Glucose 104 mg/dL (65-110); Lipase 327 U/L (23-300); Potassium 3.4 mmol/L (3.4-5.0); Sodium 135 mmol/L (137-145)
[2023-01-26] MEDS: FOLIC ACID 1 MG TABLET PO (08:42)
[2023-01-26] MEDS: THIAMINE HCL 200 MG/2 ML VIAL 100 MG IV PUSH (08:42)
--- NOTE | 2023-01-26 13:58 | P.DS_ITS ---
DS: Admitting Diagnosis Discharge Date 01/26/2023 Admitting Diagnosis Pancreatitis DS: Discharge Diagnosis Discharge Diagnosis (1) Acute pancreatitis: Code(s): K85.90 - Acute pancreatitis without necrosis or infection, unspecified Status: Acute Assessment and Plan: patient presented with severe diffuse abdominal pain /cramping * CT of the abdomen/pelvis showed peripancreatic inflammatory changes and fluid, possibly related to perforated duodenal ulcer, however appeared clinically consistent with pancreatitis * lipase elevated at 6300 on admission * Patient seen in consultation by Gastroenterology * right upper quadrant ultrasound with no evidence of gallstones or wall thickening, normal common bile duct, pancreas obscured by bowel gas shadow * patient does endorse heavy alcohol use, 1 pint of liquor per day which is the likely etiology for acute pancreatitis * He had symptomatic improvement following bowel rest and IV fluid rehydration * Lipase trended down and diet was slowly advanced. Patient able to tolerate a low-fat diet which he will continue * Patient educated on importance of alcohol cessation * Supportive care provided (2) Duodenitis: Code(s): K29.80 - Duodenitis without bleeding Status: Acute Assessment and Plan: as above, patient presented with severe abdominal pain * CT findings revealed marked well edema and 2nd portion of duodenum with wall breakdown along the posterior aspect 2nd portion of duodenum and considerable inflammatory stranding and fluid, concerning for perforated duodenal ulcer * Evaluated by General surgery during admission * Findings felt to be related to peripancreatic fluid. Patient had no diffuse peritoneal signs and no indication for surgical intervention * Per GI, patient will need to schedule EGD as an outpatient * Continue p.o. Protonix (3) Elevated LFTs: Code(s): R79.89 - Other specified abnormal findings of blood chemistry Status: Acute Assessment and Plan: LFTs elevated on presentation with total bilirubin 2.1, AST 207, ALT 230 * LFTs with overall improvement * At time of discharge, total bilirubin improved to 1.4, AST and ALT remained elevated 92/98 * Likely related to alcohol abuse, additional consideration being fatty liver which was seen on ultrasound * Hepatitis panel negative * Follow-up with GI as an outpatient for continued monitoring (4) Gastro-esophageal reflux disease without esophagitis: Code(s): K21.9 - Gastro-esophageal reflux disease without esophagitis Status: Acute Assessment and Plan: continue with Protonix as above (5) Alcohol dependence: Code(s): F10.20 - Alcohol dependence, uncomplicated Status: Acute Assessment and Plan: patient drinks 1 pint of whiskey per day * patient denies any history of alcohol withdrawal symptoms * No alcohol withdrawal symptoms during admission. Patient monitor with CIWA protocol in scores range from 0-2 * Started on thiamine and folic acid which patient will continue daily * Resources provided regarding alcohol cessation * Patient is motivated to quit drinking (6) Tobacco dependence: Code(s): F17.200 - Nicotine dependence, unspecified, uncomplicated Status: Acute Assessment and Plan: patient smokes 1 pack per day * Patient educated on smoking cessation. Alcohol cessation, however, was prioritized. Patient does not intend to quit smoking at this time. * declined nicotine patch during admission (7) Hyponatremia:
--- NOTE | 2023-01-26 13:58 | PM.DS ---
DS: Admitting Diagnosis Discharge Date 01/26/2023 Admitting Diagnosis Pancreatitis DS: Discharge Diagnosis Discharge Diagnosis (1) Acute pancreatitis: Code(s): K85.90 - Acute pancreatitis without necrosis or infection, unspecified Status: Acute Assessment and Plan: patient presented with severe diffuse abdominal pain /cramping CT of the abdomen/pelvis showed peripancreatic inflammatory changes and fluid, possibly related to perforated duodenal ulcer, however appeared clinically consistent with pancreatitis lipase elevated at 6300 on admission Patient seen in consultation by Gastroenterology right upper quadrant ultrasound with no evidence of gallstones or wall thickening, normal common bile duct, pancreas obscured by bowel gas shadow patient does endorse heavy alcohol use, 1 pint of liquor per day which is the likely etiology for acute pancreatitis He had symptomatic improvement following bowel rest and IV fluid rehydration Lipase trended down and diet was slowly advanced. Patient able to tolerate a low-fat diet which he will continue Patient educated on importance of alcohol cessation Supportive care provided (2) Duodenitis: Code(s): K29.80 - Duodenitis without bleeding Status: Acute Assessment and Plan: as above, patient presented with severe abdominal pain CT findings revealed marked well edema and 2nd portion of duodenum with wall breakdown along the posterior aspect 2nd portion of duodenum and considerable inflammatory stranding and fluid, concerning for perforated duodenal ulcer Evaluated by General surgery during admission Findings felt to be related to peripancreatic fluid. Patient had no diffuse peritoneal signs and no indication for surgical intervention Per GI, patient will need to schedule EGD as an outpatient Continue p.o. Protonix (3) Elevated LFTs: Code(s): R79.89 - Other specified abnormal findings of blood chemistry Status: Acute Assessment and Plan: LFTs elevated on presentation with total bilirubin 2.1, AST 207, ALT 230 LFTs with overall improvement At time of discharge, total bilirubin improved to 1.4, AST and ALT remained elevated 92/98 Likely related to alcohol abuse, additional consideration being fatty liver which was seen on ultrasound Hepatitis panel negative Follow-up with GI as an outpatient for continued monitoring (4) Gastro-esophageal reflux disease without esophagitis: Code(s): K21.9 - Gastro-esophageal reflux disease without esophagitis Status: Acute Assessment and Plan: continue with Protonix as above (5) Alcohol dependence: Code(s): F10.20 - Alcohol dependence, uncomplicated Status: Acute Assessment and Plan: patient drinks 1 pint of whiskey per day patient denies any history of alcohol withdrawal symptoms No alcohol withdrawal symptoms during admission. Patient monitor with CIWA protocol in scores range from 0-2 Started on thiamine and folic acid which patient will continue daily Resources provided regarding alcohol cessation Patient is motivated to quit drinking (6) Tobacco dependence: Code(s): F17.200 - Nicotine dependence, unspecified, uncomplicated Status: Acute Assessment and Plan: patient smokes 1 pack per day Patient educated on smoking cessation. Alcohol cessation, however, was prioritized. Patient does not intend to quit smoking at this time. declined nicotine patch during admission (7) Hyponatremia: Code(s): E87.1 - Hypo-osmolality and hyponatremia Status: Acute Assessment and Plan: Patient developed hyponatremia likely due to hypotonic fluids as he was originally on D5 1/2NS Sodium levels normalized with transition to normal saline IV fluids discontinued and sodium levels remained stable DS: Summary Hospital Course Hospital Course: Date of service: 01/23/2023 Date of discharge: 01/26
[2023-01-26 14:00] VITALS: BP 135/91; PULSE 100; RESP 18; TEMP 36.4; O2SAT 96
[2023-01-26] MEDS: PANTOPRAZOLE 40 MG TABLET PO (14:17)
== END 2023-01-26 14:40 | disposition home or self-care (01) | DRG 282 ==
LOC: ANHED 17:45 → ANH3MEDSUR 22:32
PROVIDERS: Emergency Medicine; Nurse Practitioner Family; Admitting Provider Internal Medicine; Emergency Provider Emergency Medicine; PCP Family Medicine; Visit Provider Physician Assistant
DX: K85.90 Acute pancreatitis without necrosis or infection, unspecified (principal); K26.5 Chronic or unspecified duodenal ulcer with perforation; E87.1 Hypo-osmolality and hyponatremia; F10.20 Alcohol dependence, uncomplicated; K21.9 Gastro-esophageal reflux disease without esophagitis; K29.80 Duodenitis without bleeding; F17.210 Nicotine dependence, cigarettes, uncomplicated; Z79.899 Other long term (current) drug therapy
CPT/HCPCS: 36415; 74177; 76705; 80053; 80074; 81001; 82948; 83605; 83690; 84295; 84478; 85025; 85027; 85055; 96361; 96374; 96375; 99285; A9270; C9113; J0131; J1170; J1885; J2405; J3411; J7030; J7120; Q9967

== ENCOUNTER 2024-01-03 18:13 | Emergency (ER) | payer SELFPAY ==
--- NOTE | ~2024-01-03 | XR_ITS ---
EXAMINATION: XR chest 1V portable DATE: 01/03/2024 21:41 INDICATION: Shortness of breath. Cough. TECHNIQUE: A single frontal view of the chest was obtained. COMPARISON: CT abdomen and pelvis 01/23/2023 FINDINGS: There is no pneumonia, pleural effusion, or pneumothorax. The heart size is normal. IMPRESSION: 1. No acute cardiopulmonary disease. Reviewed, dictated and finalized at location E. AL CLAIMS PROCESSOR
[2024-01-03 18:17] VITALS: BP 144/99; PULSE 92; RESP 20; TEMP 36.6; O2SAT 95
--- NOTE | 2024-01-03 20:29 | PC.NURSE ---
Pt brought back to room from waiting area and now has c/o chest pressure and soreness. pt also reports he has had diarrhea for 4 days.
[2024-01-03 20:33] VITALS: O2SAT 94
[2024-01-03 20:35] VITALS: BP 132/98; PULSE 113; RESP 15; O2SAT 97
--- NOTE | 2024-01-03 20:43 | ECG_ITS ---
Measurements Intervals [place] Rate: 104 P: 48 WA: 115 QRS: 2 QRSD: 90 T: 19 QT: 330 QTc: 436 Interpretive Statements SINUS TACHYCARDIA WITH SHORT [place] INTERVAL LEFT VENTRICULAR HYPERTROPHY AND ST-T CHANGE [VOLTAGE CRITERIA PLUS ST/T ABNORMALITY], CONSIDER ISCHEMIA ABNORMAL ECG NO PREVIOUS ECG AVAILABLE FOR COMPARISON Electronically Signed On 01-04-2024 12:21:17 CHAIN SAW OPERATOR by Matteo Braden M.D.
--- NOTE | 2024-01-03 20:43 | ED.URI ---
HPI - URI/Sore Throat General Chief Complaint: Upper Respiratory Infection Stated Complaint: UPPER RESP INFECTION Time Seen by Provider: 01/03/24 20:33 Source: patient Mode of arrival: ambulatory Limitations: no limitations History of Present Illness HPI Narrative: Patient is a 33-year-old male, history of smoking, former alcoholic, who presents to the ED with report of URI sx's. Patient reports he began feeling ill on Monday. He complains of cough with clear sputum, chest tightness, congestion, sinus pressure, headache, rhinorrhea, sore throat, myalgias, intermittent fever, diarrhea. He has been taking [id number] cough medicine for his symptoms with minimal improvement. Denies known sick contacts. Denies nausea, vomiting, abdominal pain. Denies rectal bleeding or melena. Patient is not vaccinated for COVID or influenza. Related Data Allergies Allergy/AdvReac Type Severity Reaction Status Date / Time hydroxyzine [From Vistaril] Allergy Intermediate Fever Verified 10/28/20 11:01 Review of Systems Review of Systems: CONSTITUTIONAL: Reports fever. ENT: See HPI. CARDIOVASCULAR: Denies chest pain, palpitations, or edema. RESPIRATORY: See HPI. GASTROINTESTINAL: Reports diarrhea. Denies abdominal pain, nausea, vomiting. MUSCULOSKELETAL: Reports myalgia. All systems reviewed & are unremarkable except as noted in HPI and below PMFSH Past Medical History Medical History Abdominal pain Abscessed tooth Anemia (~01/26/23) hemoglobin 12.6 on 01/26/2023. BMI 28.0-28.9,adult BMI 29.0-29.9,adult Diarrhea Dog bite of lower leg (08/10/23) Edema Essential (primary) hypertension Fatty liver due to alcoholism diffuse fatty changes of the liver on ultrasound 01/24/2023. Gastro-esophageal reflux disease without esophagitis Hyponatremia Overweight (BMI 25.0-29.9) Perforated duodenal ulcer (~01/23/23) Tobacco use disorder, continuous Viral illness Surgical History Surgical History History of surgery on arm (~1997) left arm due to fracture Family History Family History Grandparent Heart disease Hypoglycemia Mother Kidney stones Father Hx of hernia repair Grandparent Diabetes mellitus Heart disease Kidney disease Social History Social History Smoking packs per day: 1 Smoking cigarettes per day: 20.0 Years smoked: 14 Smoking pack-years: 14.00 Smoking status: Current every day smoker Tobacco type: cigarettes Second hand tobacco smoke exposure: No Alcohol intake: former Drinks per week: 5 Alcohol use details: pint of john daily Stopped drinking all alcohol on 01/21/2023. Substance use: current Substance use type: marijuana Last use: 01/20/23 Lack of Transportation: No Lack of Food: Never True Current Housing: I Have Housing Concerned About Future Housing: No Difficulty Paying Gas/Electric Bills: No Difficulty Paying for Meds: No Currently Unemployed: No Education: Associate Degree Difficulty w/ Childcare or Family Care: No Spiritual care concerns: No Exam Narrative: GENERAL: Well appearing, well-nourished, non-toxic, in no acute distress. HEAD: Normocephalic, atraumatic. RESPIRATORY: Airway patent, respirations nonlabored. Scattered wheezing and crackles throughout lung bases bilaterally. No stridor or distress. CARDIOVASCULAR: Borderline tachycardic with regular rhythm without murmurs, rubs, or gallops. MUSCULOSKELETAL: Moves all extremities. No gross deformities. SKIN: Warm, dry, normal color. NEURO: A&O X3. Speech clear. PSYCHIATRIC: Appropriate mood and affect. Normal interaction. Course Vital Signs Vital signs: Vital Signs Temperature 97.8 F 01/03/24 18:17
[2024-01-03] MEDS: IPRATROPIUM BR 0.02% INH SOLN 0.5 MG/2.5 ML VIAL 1.5 MG INHALATION (20:55)
[2024-01-03] MEDS: LEVALBUTEROL NEB 1.25 MG/3 ML 2.5 MG INHALATION (20:55)
[2024-01-03 20:56] VITALS: PULSE 96; RESP 23
[2024-01-03 21:21] VITALS: BP 141/101; PULSE 93; RESP 16; O2SAT 100
[2024-01-03 21:50] LABS: Influenza A QL RT-PCR Negative (Negative); Influenza B QL RT-PCR Negative (Negative); RSV RNA, RT-PCR Negative (Negative); SARS-CoV-2 RNA PCR Negative (Negative)
[2024-01-03 22:45] LABS: Basophils Percent Auto 0.2 % (0.2-1.2); Eosinophils Percent Auto 0.6 % (0-4.4); Hematocrit 44.7 % (42.0-52.0); Hemoglobin 15.5 g/dL (14.0-18.0); Immature Granulocyte Absolute 0.01 K/mm3 (0.00-0.031); Immature Granulocyte Percent A 0.2 % (0-0.5); Immature Platelet Fraction Pct 5.4 % (0.9-11.2); Lymphocytes Absolute Auto 1.64 K/mm3 (0.9-3.2); Lymphocytes Percent Auto 33.5 % (18.3-44.2); Mean Corpuscular HGB Conc 34.7 g/dl (32-36); Mean Corpuscular Volume 92.4 fl (80-100); Mean Platelet Volume 9.7 fl (7.4-10.4); Monocytes Absolute Auto 0.4 K/mm3 (0.1-0.6); Monocytes Percent Auto 8.2 % (2.6-8.5); Neutrophils Absolute Auto 2.8 K/mm3 (1.3-6.7); Neutrophils Percent Auto 57.3 % (45.5-73.1); Platelet Count Result 146 k/mm3 (150-375); Red Blood Count 4.84 M/mm3 (4.6-6.20); Red Cell Distribution Width 13.4 % (11.5-14.5); White Blood Count 4.9 K/mm3 (4.5-10.0)
[2024-01-03 22:58] LABS: Alanine Aminotransferase 57 U/L (6-50); Albumin Level 4.6 g/dL (3.5-5.1); Alkaline Phosphatase 100 U/L (38-126); Anion Gap 11 mmol/L (8-16); Aspartate Amino Transferase 81 U/L (17-59); Bilirubin,Total 0.8 mg/dL (0.2-1.3); Blood Urea Nitrogen 7 mg/dL (9-20); Calcium 9.2 mg/dL (8.4-10.2); Carbon Dioxide 26 mmol/L (22-30); Chloride 95 mmol/L (98-107); D Dimer 0.29 ug/mL (<0.48); Estimated CRCL calculation 122 ml/min; Estimated Glomerular Filt Rate > 60; Glucose 114 mg/dL (65-110); Potassium 2.7 mmol/L (3.4-5.0); Sodium 132 mmol/L (137-145)
[2024-01-03 23:04] LABS: Troponin I < 0.012 ng/mL (0.000-0.034)
[2024-01-03 23:06] VITALS: BP 139/94; PULSE 100; RESP 21; O2SAT 95
[2024-01-03] MEDS: POTASSIUM CHLORIDE 20 MEQ ER TABLET 40 MEQ PO (23:13)
[2024-01-03] MEDS: KCL 20 MEQ/SW 100 ML 100 ML 50 MEQ IVPB (23:21)
[2024-01-03] MEDS: SODIUM CHLORIDE 0.9% IV 500 ML 999 ML (23:22)
[2024-01-03 23:32] LABS: Magnesium 1.6 mg/dL (1.6-2.3)
[2024-01-04] MEDS: MAGNESIUM SULF 2 GM/WATER 50ML 2 GM/50 ML BAG IVPB (01:01)
[2024-01-04 01:06] VITALS: BP 138/97; PULSE 90; RESP 20; O2SAT 96
[2024-01-04] MEDS: SODIUM CHLORIDE 0.9% IV 1,000 ML 999 ML IV CONT (01:14)
--- NOTE | 2024-01-04 01:34 | ECG_ITS ---
Measurements Intervals [place] Rate: 88 P: 44 WV: 112 QRS: 13 QRSD: 91 T: 32 QT: 357 QTc: 432 Interpretive Statements SINUS RHYTHM WITH SHORT [place] INTERVAL POSSIBLE RIGHT VENTRICULAR CONDUCTION DELAY [RSR (QR) IN V1/V2] NONSPECIFIC T-WAVE ABNORMALITY COMPARED TO ECG 01/03/2024 21:44:58 HEART RATE HAS DECREASED ST ABNORMALITIES HAVE IMPROVED CRITERIA FOR LVH NO LONGER MET Electronically Signed On 01-04-2024 12:24:34 HOT HEAD MACHINE OPERATOR by Matteo Braden M.D.
[2024-01-04 02:27] VITALS: BP 125/88; PULSE 89; RESP 18; O2SAT 94
[2024-01-04 02:59] LABS: Troponin I < 0.012 ng/mL (0.000-0.034)
[2024-01-04 03:25] VITALS: BP 118/94; PULSE 88; RESP 20; O2SAT 96
== END 2024-01-04 03:25 | disposition home or self-care (01) ==
PROVIDERS: Emergency Medicine; Emergency Provider Physician Assistant; PCP Family Medicine
DX: J06.9 Acute upper respiratory infection, unspecified (principal); E87.6 Hypokalemia; R06.2 Wheezing; R07.89 Other chest pain; Z20.822 Contact with and (suspected) exposure to COVID-19; I10 Essential (primary) hypertension; D64.9 Anemia, unspecified; K21.9 Gastro-esophageal reflux disease without esophagitis; E66.3 Overweight; Z68.25 Body mass index [BMI] 25.0-25.9, adult; F17.210 Nicotine dependence, cigarettes, uncomplicated; Z28.310 Unvaccinated for COVID-19; Z86.2 Personal history of diseases of the blood and blood-forming organs and certain disorders involving the immune mechanism; R00.0 Tachycardia, unspecified; R94.31 Abnormal electrocardiogram [ECG] [EKG]
CPT/HCPCS: 36415; 71045; 80053; 83735; 84484; 85025; 85055; 85380; 87637; 93005; 94640; 96365; 99284; A9270; J3475; J3480; J7030; J7040

== ENCOUNTER 2024-01-25 10:31 | Emergency (ER) | payer SELFPAY ==
--- NOTE | ~2024-01-25 | CT_ITS ---
EXAMINATION: CT facial bones wo con DATE: 01/25/2024 12:39 INDICATION: Dog bite to face. TECHNIQUE: Computed tomography (CT) of the facial bones and maxillofacial region was performed withou t intravenous contrast. Automated exposure control and iterative reconstruction technique were employ ed. The dose-length product was 404.65 mGy-cm. COMPARISON: None. FINDINGS: The orbits are normal. There is leftward deviation of anterior nasal septum and rightward d eviation of posterior nasal septum. There is mild mucosal thickening in the paranasal sinuses. There is a laceration of the right lower face. The mastoid air cells are normal. There is extensive dental disease. There is mild cervical spondylosis. IMPRESSION: 1. No fracture. 2. Extensive dental disease. Reviewed, dictated and finalized at location A.
[2024-01-25 11:00] VITALS: BP 148/95; PULSE 100; RESP 16; TEMP 37.2; O2SAT 98
--- NOTE | 2024-01-25 11:56 | ED.ANIMALBIT ---
HPI - Animal Bite General Chief Complaint: Animal Bite Stated Complaint: DOG BITE TO CHIN AND LIP Time Seen by Provider: 01/25/24 11:55 History of Present Illness HPI narrative: Patient is a 34 year old male with history of HTN, GERD here with dog bite to face. Patient states that around 3 am he was having a verbal altercation with his fiance. He put his arms up during the argument and he suspects that the dog thought he was going to hit her, the dog then lunged up to his face and bit him. This was the dog's first time biting. He is reportedly up to date with vaccinations. Patient did not wash the wound, dressed the wound himself at home to help stop the bleeding. He then presented to the ER for evaluation later this morning. He denies pain in his jaw. Notes wound to his chin as well as his lip. Related Data Allergies Allergy/AdvReac Type Severity Reaction Status Date / Time hydroxyzine [From Vistaril] AdvReac Intermediate Fever Verified 01/25/24 11:24 Review of Systems Review of Systems: All systems reviewed & are unremarkable except as noted in HPI and below PMFSH Past Medical History Medical History Abdominal pain Abscessed tooth Anemia (~01/26/23) hemoglobin 12.6 on 01/26/2023. BMI 28.0-28.9,adult BMI 29.0-29.9,adult Diarrhea Dog bite of lower leg (08/10/23) Edema Essential (primary) hypertension Fatty liver due to alcoholism diffuse fatty changes of the liver on ultrasound 01/24/2023. Gastro-esophageal reflux disease without esophagitis Hyponatremia Overweight (BMI 25.0-29.9) Perforated duodenal ulcer (~01/23/23) Tobacco use disorder, continuous Viral illness Surgical History Surgical History History of surgery on arm (~1997) left arm due to fracture Family History Family History Grandparent Heart disease Hypoglycemia Mother Kidney stones Father Hx of hernia repair Grandparent Diabetes mellitus Heart disease Kidney disease Social History Social History Smoking packs per day: 1 Smoking cigarettes per day: 20.0 Years smoked: 14 Smoking pack-years: 14.00 Smoking status: Current every day smoker Tobacco type: cigarettes Second hand tobacco smoke exposure: No Alcohol intake: former Drinks per week: 5 Alcohol use details: rajat daily Stopped drinking all alcohol on 01/21/2023. Substance use: current Substance use type: marijuana Last use: 01/20/23 Lack of Transportation: No Lack of Food: Never True Current Housing: I Have Housing Concerned About Future Housing: No Difficulty Paying Gas/Electric Bills: No Difficulty Paying for Meds: No Currently Unemployed: No Education: Associate Degree Difficulty w/ Childcare or Family Care: No Spiritual care concerns: No Exam Narrative: GENERAL: Well-appearing, well-nourished, and in no acute distress. HEAD: Normocephalic, 3 cm skin defect at the tip of the chin on the right side. Bleeding controlled. 1cm superficial laceration to the left lower lip, bleeding controlled. No internal wounds appreciated. Full ROM of mandible, non tender over mandible. EYES: PERRLA and EOMI. ENT: Nares clear. Mucous membranes moist. NECK: Supple. CHEST: Clear to auscultation. No respiratory distress. HEART: Regular rate and rhythm. Normal peripheral pulses. ABDOMEN: Soft, nontender, nondistended. EXTREMITIES: Normal range of motion. No edema. SKIN: Warm, dry, no rash. NEURO: No focal deficits. Alert and oriented x3. PSYCH: Normal mood and affect. Course Course Emergency Course: Chart review performed. Patient here after a dog bite to face. Triage vitals normal. One prior admission for pancreatitis. Patient seen and evaluated, non toxic ap
[2024-01-25] MEDS: AMOXICILLIN/CLAVULANATE K 875-125 MG TAB 1 TABLET PO (13:32)
--- NOTE | 2024-01-25 13:55 | PC.NURSE ---
DR MORALES AT BEDSIDE FOR REPAIR.
[2024-01-25 14:37] VITALS: BP 147/99; PULSE 80; RESP 16; O2SAT 96
--- NOTE | 2024-01-25 15:09 | WPDCN ---
Assessment and Plan Assessment and plan (1) Dog bite of face: Qualifiers: Encounter type: initial encounter Qualified Code(s): S01.85XA - Open bite of other part of head, initial encounter; W54.0XXA - Bitten by dog, initial encounter Code(s): S01.85XA - Open bite of other part of head, initial encounter; W54.0XXA - Bitten by dog, initial encounter Status: Acute Assessment and Plan: 34yo male with facial dog bite and soft tissue loss presenting to ER reviewed impression and Dx and option sof allowing to heal by secondar intent vs attempting primary closure discussed differnce in options, post-op expectaiotns, healing expectations and risks. pt stated he would like to proceed with attempt at primary closure Plan; 1) wound closed 2) dressing instructions reviwed 3) abx per ER 4) f/u 10 days for suture removal HPI Data of Consult Date/Time: 01/25/24 15:09 Primary Care Provider: Kishor Fitzpatrick MD Consult Narrative Narrative: Abraham Feliciano is a 34 year old male who presented to the ER after dog bite to face at 3AM this morning but presented in late morning. Given complexity of laceration Plastics was consulted. Pt denies other injuries or concerns PMFSH Past Medical History Medical History Abdominal pain Abscessed tooth Anemia (~01/26/23) hemoglobin 12.6 on 01/26/2023. BMI 28.0-28.9,adult BMI 29.0-29.9,adult Diarrhea Dog bite of lower leg (08/10/23) Edema Essential (primary) hypertension Fatty liver due to alcoholism diffuse fatty changes of the liver on ultrasound 01/24/2023. Gastro-esophageal reflux disease without esophagitis Hyponatremia Overweight (BMI 25.0-29.9) Perforated duodenal ulcer (~01/23/23) Tobacco use disorder, continuous Viral illness Surgical History Surgical History History of surgery on arm (~1997) left arm due to fracture Family History Family History Grandparent Heart disease Hypoglycemia Mother Kidney stones Father Hx of hernia repair Grandparent Diabetes mellitus Heart disease Kidney disease Social History Social History Smoking packs per day: 1 Smoking cigarettes per day: 20.0 Years smoked: 14 Smoking pack-years: 14.00 Smoking status: Current every day smoker Tobacco type: cigarettes Second hand tobacco smoke exposure: No Alcohol intake: former Drinks per week: 5 Alcohol use details: rajat daily Stopped drinking all alcohol on 01/21/2023. Substance use: current Substance use type: marijuana Last use: 01/20/23 Lack of Transportation: No Lack of Food: Never True Current Housing: I Have Housing Concerned About Future Housing: No Difficulty Paying Gas/Electric Bills: No Difficulty Paying for Meds: No Currently Unemployed: No Education: Associate Degree Difficulty w/ Childcare or Family Care: No Spiritual care concerns: No Meds Home Medications and Allergies Home Medications Medication Instructions Recorded Confirmed Type folic acid 1 mg tablet 1 mg PO DAILY #30 tabs 02/24/23 Rx thiamine HCl (vitamin B1) 100 mg 50 mg PO DAILY #30 tabs 02/24/23 Rx tablet pantoprazole 40 mg tablet,delayed 40 mg PO DAILY #30 tabs 02/26/23 Rx release amlodipine 5 mg tablet 5 mg PO DAILY #30 tabs 03/28/23 Rx amoxicillin 875 mg-potassium 1 tablet PO BID #10 tabs 08/10/23 Rx clavulanate 125 mg tablet albuterol sulfate 90 mcg/actuation 2 puff inhalation QID PRN 01/04/24 Rx aerosol inhaler shortness of breath or wheezing #6.7 grams benzonatate 200 mg capsule 200 mg PO TID PRN cough #15 caps 01/04/24 Rx methylprednisolone 4 mg tablets in See Rx Instructions PO .COMPLEX 01/04/24 Rx a dose pack (M
== END 2024-01-25 14:37 | disposition home or self-care (01) ==
PROVIDERS: Emergency Provider Student in an Organized Health Care Education/Training Program; PCP Family Medicine
DX: S01.85XA Open bite of other part of head, initial encounter (principal); I10 Essential (primary) hypertension; K21.9 Gastro-esophageal reflux disease without esophagitis; E66.3 Overweight; Z68.26 Body mass index [BMI] 26.0-26.9, adult; F17.210 Nicotine dependence, cigarettes, uncomplicated; W54.0XXA Bitten by dog, initial encounter
CPT/HCPCS: 12013; 70486; 99284; A9270

== ENCOUNTER 2024-05-24 15:35 | Emergency (ER) | payer SELFPAY ==
--- NOTE | ~2024-05-24 | XR_ITS ---
EXAMINATION: XR knee LT 3V DATE: 05/24/2024 15:59 INDICATION: Left knee pain TECHNIQUE: Anteroposterior, oblique and crosstable lateral views of the left knee were obtained COMPARISON: None. FINDINGS: Alignment is normal. No fracture. Joint spaces appear normal on nonweightbearing imaging with no ost eophytosis. No erosions. Moderate-sized left knee joint effusion. Soft tissues are otherwise unremark able. IMPRESSION: 1. Nonspecific moderate-sized left knee joint effusion. No osseous abnormality. Reviewed, dictated and finalized at location A.
[2024-05-24 15:37] VITALS: BP 145/109; PULSE 103; RESP 16; TEMP 36.4; O2SAT 97
--- NOTE | 2024-05-24 17:10 | ED.GENADULT ---
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 He rested his knee after work, then he got up to grab his phone and he twisted his knee and felt/heard a pop and went to bed and woke up with increased pain/ swelling and unable to bear weight. GENERAL: Well-appearing, well-nourished, and in no acute distress. HEAD: Normocephalic, atraumatic. CHEST: Clear to auscultation. ?No respiratory distress. HEART: Regular rate and rhythm.? NEURO: ?Alert and oriented x3. Patient screened in triage and initial orders placed.? ?Additional care and disposition to be based upon?diagnostic testing and treatment. 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 He rested his knee after work, then he got up to grab his phone and he twisted his knee and felt/heard a pop and went to bed and woke up with increased pain/ swelling and unable to bear weight. Related Data Allergies Allergy/AdvReac Type Severity Reaction Status Date / Time hydroxyzine [From Vistaril] AdvReac Intermediate Fever Verified 01/30/24 16:39 Review of Systems Review of Systems: All systems reviewed & are unremarkable except as noted in HPI and below PMFSH Past Medical History Medical History Abdominal pain Abscessed tooth Anemia (~01/26/23) hemoglobin 12.6 on 01/26/2023. BMI 28.0-28.9,adult BMI 29.0-29.9,adult Diarrhea Dog bite of lower leg (08/10/23) Edema Essential (primary) hypertension Fatty liver due to alcoholism diffuse fatty changes of the liver on ultrasound 01/24/2023. Gastro-esophageal reflux disease without esophagitis Hyponatremia Overweight (BMI 25.0-29.9) Perforated duodenal ulcer (~01/23/23) Tobacco use disorder, continuous Viral illness Surgical History Surgical History History of surgery on arm (~1997) left arm due to fracture Family History Family History Grandparent Heart disease Hypoglycemia Mother Kidney stones Father Hx of hernia repair Grandparent Diabetes mellitus Heart disease Kidney disease Social History Social History Smoking packs per day: 1 Smoking cigarettes per day: 20.0 Years smoked: 14 Smoking pack-years: 14.00 Smoking status: Current every day smoker Tobacco type: cigarettes Second hand tobacco smoke exposure: No Alcohol intake: former Drinks per week: 5 Alcohol use details: pint of whiskey daily Stopped drinking all alcohol on 01/21/2023. Substance use: current Substance use type: marijuana Last use: 01/20/23 Lack of Transportation: No Lack of Food: Never True Current Housing: I Have Housing Concerned About Future Housing: No Difficulty Paying Gas/Electric Bills: No Difficulty Paying for Meds: No Currently Unemployed: No Education: Associate Degree Difficulty w/ Childcare or Family Care: No Spiritual care concerns: No Exam Const: General: healthy appearing Nutritional Appearance: well nourished Orientation/consciousness: patient oriented x3 Limitations: no limitations HENMT: Head: normal to inspection Ears: external ears normal Face/Nose/Sinus: Normal external nose present Face and sinus: normal facial exam Mouth: Yes Normal oral and palatal mucosa present Eyes: Conjunctivae: conjunctivae normal Pupils: Equal, round and reactive pupils present EOM: EOMs intact bilaterally Neck: Ne
[2024-05-24] MEDS: IBUPROFEN 600 MG TABLET PO (18:15)
[2024-05-24] MEDS: ACETAMINOPHEN 500 MG TABLET 1000 MG PO (18:16)
--- NOTE | 2024-05-24 18:35 | PC.NURSE ---
Crutch training performed, pt demonstrate appropriate use of crutches.
[2024-05-24 18:36] VITALS: BP 136/90; PULSE 95; RESP 18; TEMP 36.8; O2SAT 98
== END 2024-05-24 18:42 | disposition home or self-care (01) ==
LOC: ANHED 17:37
PROVIDERS: Emergency Provider Nurse Practitioner Family; PCP Family Medicine
DX: M25.562 Pain in left knee (principal); M25.462 Effusion, left knee; I10 Essential (primary) hypertension; E66.3 Overweight; Z68.25 Body mass index [BMI] 25.0-25.9, adult; K21.9 Gastro-esophageal reflux disease without esophagitis; F17.210 Nicotine dependence, cigarettes, uncomplicated; Z86.2 Personal history of diseases of the blood and blood-forming organs and certain disorders involving the immune mechanism; Z79.899 Other long term (current) drug therapy
CPT/HCPCS: 73562; 99283; A9270